=== PATIENT | male | born 1965 ===

== ENCOUNTER 2019-02-09 17:13 | Emergency (ER) | payer SELFPAY ==
[~2019-02-09] VITALS: Ht 165.1 cm; Wt 73.0 kg
[2019-02-09 17:40] VITALS: BP 107/99
== END 2019-02-09 19:42 | disposition left against medical advice (07) ==
LOC: ER 17:13
DX: Z53.21 Procedure and treatment not carried out due to patient leaving prior to being seen by health care provider (principal)